=== PATIENT | male | born 1940 | race Caucasian/White ===

== ENCOUNTER 2022-05-29 20:39 | Emergency (ER) | payer BC ==
[2022-05-29 22:06] LABS: CALCIUM 9.3 mg/dL (8.5-10.3); POTASSIUM 3.9 mmol/L (3.5-5.0)
[2022-05-29] MEDS ORDERED: MOLNUPIRAVIR PREPACK PO STA (22:39)
--- NOTE | 2022-05-29 22:42 | ED Physician Documentation ---
PD HPI URI - Stated complaint Stated Complaint: COUGH/C+ - Chief complaint Chief Complaint: Resp - History obtained from History obtained from: Patient - Additional information Additional information: Patient is an 82-year-old male with a history of hypertension presenting for antiviral treatment with recent positive COVID test. Patient had been doing well up until this evening which time he developed a dry cough. He took a home COVID test which was positive. He does have a history of bronchiectasis and is interested in antiviral medication. He is visiting this area from [place]. He does have a history of hypertension. He recently moved to [place] from the . He was previously on a medication called lercanidipine When he moved to [place] that medication was no longer available. He is currently on amlodipine.He started this medication in November but has not followed up for recheck of his blood pressure while on this medication.He denies fever, chest pain, trouble breathing, abdominal pain, vomiting, dizziness or headache. Review of Systems Constitutional: denies: Fever Nose: denies: Congestion Cardiac: denies: Chest pain / pressure Respiratory: reports: Cough (Dry cough). denies: Dyspnea GI: denies: Abdominal Pain : denies: Dysuria Skin: denies: Rash Musculoskeletal: denies: Extremity swelling Neurologic: denies: Headache PD PAST MEDICAL HISTORY - Past Medical History Past Medical History: Yes Cardiovascular: Hypertension Respiratory: Other Endocrine/Autoimmune: None GI: None : None Musculoskeletal: None Derm: None - Past Surgical History Past Surgical History: No - Allergies Allergies/Adverse Reactions: Allergies Allergy/AdvReac Type Severity Reaction Status Date / Time No Known Drug Allergies Allergy Verified 05/29/22 20:59 - Social History Does the pt smoke?: No Smoking Status: Never smoker Does the pt drink ETOH?: No Does the pt have substance abuse?: No - Immunizations Immunizations are current?: Yes - POLST Patient has POLST: No PD ED PE NORMAL - General General: Alert and oriented X 3, No acute distress, Well developed/nourished - HEENT HEENT: Atraumatic, Moist mucous membranes - Neck Neck: Supple, no meningeal sign - Cardiac Cardiac: RRR, No murmur, Strong equal pulses - Respiratory Respiratory: No respiratory distress, Clear bilaterally - Abdomen Abdomen: Normal bowel sounds, Soft, Non tender, Non distended - Derm Derm: Warm and dry - Extremities Extremities: No edema - Neuro Neuro: Normal speech - Psych Psych: Normal mood Results - Vitals Vitals: Vital Signs - 24 hr 05/29/22 05/29/22 05/29/22 20:55 22:10 22:50 Temperature 37.0 C 36.8 C Heart Rate 71 75 77 Respiratory 16 16 16 Rate Blood Pressure 211/112 H 226/102 H 192/102 H O2 Saturation 97 98 100 Oxygen O2 Source Room air - Labs Labs: Laboratory Tests 05/29/22 21:50 Sodium 140 Potassium 3.9 Chloride 102 Carbon Dioxide 28 Anion Gap 10.0 BUN 19 Creatinine 1.0 Estimated GFR (MDRD) 72 L Glucose 101 H Calcium 9.3 PD MEDICAL DECISION MAKING - ED course Complexity details: d/w patient, d/w family ED course: Patient presenting for evaluation with recent home positive COVID test. Blood pressure noted to be elevated. Patient is asymptomatic in regards to hypertension. He was started on a different medication in November and did not g o back to the doctor for a recheck. His lung sounds are clear and his oxygen saturations are normal.BMP was ordered with normal renal function. Amlodipine may have some contraindication with paxlovid but pt can take molnupiravir. Patient counseled on risks and benefits and agreeable to this medication. He is Aware that it is under emergency use authorization. He is aware of strict return precautions. He is aware of need for close follow-up in regards to his blood pressure. Departure - Departure Disposition: Home, Self Care Clinical Impression: COVID-19, Uncontrolled hypertension Condition: Stable Instructions: ED Hypertension Conf Out Of Control, COVID-19 [facility] Department Statement Comments: You have recently tested positive for COVID-19. Based on your age and underlying medical conditions, you do qualify for antiviral treatment. We checked your electrolytes and renal function today without significant findings. We believe you are on a medication called amlodipine and there is a co ntraindication for Paxlovid. However there is another antiviral called Molnupiravir that you are Eligible to take.We will dispense this medication to you. Your blood pressure was also noted to be very elevated. This may be due to a recent change in blood pressure medications.Once you are clear from a quarantine standpoint, please follow-up with your primary care doctor or walk-in clinic regarding your blood pressure. If you have any worsening symptoms please return to the emergency department. Discharge Date/Time: 05/29/22 22:50
[2022-05-29 22:51] VITALS: BP 192/102
== END 2022-05-29 22:50 | disposition home or self-care (01) ==
LOC: ED 20:39
DX: U07.1 COVID-19 (principal); I10 Essential (primary) hypertension
CPT/HCPCS: 36415; 80048; 99283; J3490